=== PATIENT | male | born 1955 | race Caucasian/White ===

== ENCOUNTER 2020-08-22 07:32 | Emergency (ER) | payer MEDICARE, MEDICAID ==
--- NOTE | 2020-08-22 07:52 | EDM.PDOC ---
ED HPI GENERAL MEDICAL PROBLEM - General Chief Complaint: ENT Problem Stated Complaint: DENTAL COMPLAINT Time Seen by Provider: 08/22/20 07:51 - History of Present Illness INITIAL COMMENTS - FREE TEXT/NARRATIVE: 65-year-old [facility] with [facility]ums. On the second of this month the patient had some dental extractions. Now he is digging at them with his comb and toothbrush. He is open these up and it bleeds at times. He has not had any fevers or chills. No other complaints at this time the patient suffers from psychiatric illness and traumatic brain injury. - Related Data Home Meds: Home Meds Amoxicillin 500 mg PO TID #30 tab 08/22/20 [Rx] Benzocaine [Orajel Regular Strength] 10 gm .XX Q6H #1 tube 08/22/20 [Rx] ED ROS ENT - Review of Systems Review Of Systems: See Below Reason Not Obtained: Patient is not talkative Constitutional: Reports: No Symptoms ED EXAM, ENT - Physical Exam Exam: See Below Exam Limited By: No Limitations General Appearance: Alert, No Apparent Distress Eye Exam: Bilateral Eye: Normal Inspection Ears: Normal External Exam, Normal Canal, Hearing Grossly Normal, Normal TMs Nose: Normal Inspection, Normal Mucousa, No Blood Mouth/Throat: Normal Inspection, Normal Lips, Normal Oropharynx, Other (Most of his teeth are missing lower right frontal teeth he had a recent extraction this was apparently closed up this is partially open back up. No significant redness no active bleeding at this time.) Head: Atraumatic, Normocephalic Neck: Normal Inspection, Supple, Non-Tender, Full Range of Motion. No: Lymphadenopathy (L), Lymphadenopathy (R) Respiratory/Chest: No Respiratory Distress, Lungs Clear, Normal Breath Sounds Cardiovascular: Regular Rate, Rhythm, No Edema, No Murmur Course - Vital Signs Last Recorded V/S: Last Vital Signs Temp 35.9 C L 08/22/20 07:37 Pulse 70 08/22/20 07:37 Resp 16 08/22/20 07:37 BP 96/70 08/22/20 07:37 Pulse Ox 95 08/22/20 07:37 - Re-Assessments/Exams Free Text/Narrative Re-Assessment/Exam: 08/22/20 08:10 Will give a prescription for Orajel and start him on amoxicillin Departure - Departure Time of Disposition: 08:11 Disposition: DC/Tfer to SN[facility] Clinical Impression: Bleeding gums - Discharge Information Referrals: Braden Covington MD [Primary Care Provider] - Forms: ED Department Discharge Additional Instructions: Return to the emergency room with any questions problems or worsening symptoms. Follow-up with the dentist on Monday. He has been started on amoxicillin in case he is developing an infection secondary to the gum trauma. We can try Orajel see if this stops the irritation and hopefully this will deter him from doing more trauma to the gums. Sepsis Event Note (ED) - Evaluation Sepsis Screening Result: No Definite Risk - Focused Exam Vital Signs: Vital Signs Temp Pulse Resp BP Pulse Ox 08/22/20 07:37 35.9 C L 70 16 96/70 95
== END 2020-08-22 08:30 ==
LOC: JD.ED 07:32
DX: K06.8 Other specified disorders of gingiva and edentulous alveolar ridge (principal)
CPT/HCPCS: 99283

== ENCOUNTER 2020-10-21 08:25 | Emergency (ER) | payer MEDICARE, MEDICAID ==
[2020-10-21] MEDS ORDERED: Sodium Chloride 0.9% 10 ML Syringe FLUSH PRN (09:22)
--- NOTE | 2020-10-21 09:52 | EDM.PDOC ---
ED HPI GENERAL MEDICAL PROBLEM - General Chief Complaint: General Stated Complaint: LOW BLOOD PRESSURE/LETHARGIC Time Seen by Provider: 10/21/20 08:55 Source of Information: Reports: [facility] Records History Limitations: Reports: No Limitations, Other (ED vital signs reveal a temp of 97.1, pulse of 73, respiratory rate 16, blood pressure 113/79, pulse ox 95% on room air) - History of Present Illness INITIAL COMMENTS - FREE TEXT/NARRATIVE: 65-year-old male who resides at [facility] presents to the emergency department today via [facility] for complaints of low blood pressure and lethargy. Per the snf report, the patient has a significant history of excessive amounts of water intake and hyponatremia as a result. They state that yesterday his blood pressures were in the 70s systolic and he seemed more lethargic. He then ate a bag of potato chips and seemed to get better. However I am unsure why they sent him today to be evaluated as his blood pressures are in the low 100s systolically. The patient is unable to give me any history as he has a significant history of dementia, schizophrenia and Parkinson's disease. prison reports that at baseline the patient's speech is normally garbled and he is confused. - Related Data Allergies Allergy/AdvReac Type Severity Reaction Status Date / Time clozapine [From Clozaril] Allergy Other Verified 10/21/20 09:14 haloperidol [From Haldol] Allergy Other Verified 10/21/20 09:14 Penicillins Allergy Rash Verified 10/21/20 09:14 Home Meds: Home Meds Acetaminophen 650 mg PO QID 10/21/20 [History] Albuterol Sulfate [Albuterol Sulfate HFA] 2 inhalation PO BID 10/21/20 [History] Albuterol Sulfate [Albuterol Sulfate HFA] 2 inhalation PO Q4H PRN 10/21/20 [History] Benzocaine/Menthol/Zinc Chlor [Orajel 3X Mouth Sores Gel] 1 appful MUCMEM Q6H PRN 10/21/20 [History] Calcium Carbonate [Calcium] 500 mg PO BID 10/21/20 [History] Carbidopa/Levodopa [Carbidopa-Levodopa 25-100] 2 tab PO TID 10/21/20 [History] Cholecalciferol (Vitamin D3) [Vitamin D3] 3,000 units PO QPM 10/21/20 [History] Glycopyrrolate 2 mg PO BID 10/21/20 [History] Loratadine 10 mg PO DAILY PRN 10/21/20 [History] Magnesium Oxide [Magnesium] 400 mg PO DAILY 10/21/20 [History] Melatonin 3 mg PO BEDTIME 10/21/20 [History] OLANZapine [Olanzapine] 5 mg PO QPM 10/21/20 [History] OLANZapine [Olanzapine] 20 mg PO BID 10/21/20 [History] Omeprazole 20 mg PO ACBREAKFAST 10/21/20 [History] Paliperidone [Paliperidone ER] 3 mg PO DAILY 10/21/20 [History] Potassium Chloride 20 meq PO BID 10/21/20 [History] Pyridoxine HCl (Vitamin B6) [Pyridoxine HCl] 50 mg PO DAILY 10/21/20 [History] Sennosides/Docusate Sodium [Senna Plus 8.6-50 mg Tablet] 2 each PO BID 10/21/20 [History] Venlafaxine HCl [Venlafaxine HCl ER] 225 mg PO DAILY 10/21/20 [History] bisacodyL [Bisacodyl] 10 mg RECTAL DAILY PRN 10/21/20 [History] clonazePAM [Clonazepam] 1 mg PO BID 10/21/20 [History] fluvoxaMINE [Luvox] 150 mg PO BEDTIME 10/21/20 [History] levETIRAcetam [Levetiracetam] 500 mg PO BID 10/21/20 [History] levOCARNitine [l-Carnitine] 330 mg PO TID 10/21/20 [History] polyethylene glycoL 3350 [MiraLAX] 17 gm PO DAILY 10/21/20 [History] traZODone HCl [Trazodone HCl] 100 mg PO BEDTIME 10/21/20 [History] Past Medical History HEENT History: Reports: Allergic Rhinitis Respiratory History: Reports: Asthma, Pneumonia, Recurrent Gastrointestinal History: Reports: Chronic Constipation, GERD Musculoskeletal History: Reports: Osteoporosis Neurological History: Reports: Brain Injury, Other (See Below) Other Neuro History: dementia Psychiatric History: Reports: Bipolar, Dementia, Psychosis, Schizophrenia Endocrine/Metabolic History: Reports: Hypokalemia, Hypomagnesemia - Past Surgical History HEENT Surgical History: Reports: Other (See Below) Other HEENT Surgeries/Procedures: teeth removed. Social & Family History - Caffeine Use Caffeine Use: Reports: None ED ROS GENERAL - Review of Systems Review Of Systems: Unable To Obtain (due to dementia) Reason Not Obtained: pt has significant history of dementia, schitophrenia ED EXAM, GENERAL - Physical Exam Exam: See Below Exam Limited By: No Limitations General Appearance: WD/WN, No Apparent Distress, Lethargic Eye Exam: Bilateral Eye: PERRL Ears: Normal External Exam, Hearing Grossly Normal Nose: Normal Inspection Throat/Mouth: Normal Inspection, Normal Lips, Normal Voice, No Airway Compromise Head: Atraumatic Neck: Normal Inspection, Supple Respiratory/Chest: No Respiratory Distress, Lungs Clear, Normal Breath Sounds, No Accessory Muscle Use, Chest Non-Tender Cardiovascular: Normal Peripheral Pulses, Regular Rate, Rhythm, No Edema, No Murmur Peripheral Pulses: 2+: Radial (L), Radial (R) GI/Abdominal: Normal Bowel Sounds, Soft, Non-Tender, No Distention (Male) Exam: Deferred Rectal (Males) Exam: Deferred Back Exam: Normal Inspection Extremities: Normal Inspection, Non-Tender, No Pedal Edema Neurological: Disoriented (Patient does have a history of dementia and per the snf he is quite confused), Slow to Respond (However per the snf they state this is the patient's baseline) Psychiatric: Normal Affect, Normal Mood Skin Exam: Warm, Dry, Intact, Normal Color, No Rash Lymphatic: No Adenopathy #1 Interpretation EKG Date: 10/21/20 Time: 08:32 Rhythm: NSR Rate (Beats/Min): 69 [place]: Normal P-Wave: Present QRS: Normal ST-T: Normal QT: Normal EKG Interpretation Comments: Per Dr. Kennedy interpretation: sinus rhythm @ 69 Course - Vital Signs Text/Narrative:: Patient presents to the emergency department today and snf staff reports that 1 day ago the patient seemed more lethargic and hypotensive as his blood pressures were in the 70s systolically. They report that he then ate a bag of potato chips last evening and seemed to rebound and be back to his baseline. Again I am confused as to why they have sent the patient here today as they state he is back at his baseline. Of note the patient does have a history of schizophrenia, dementia, and Parkinson's. He is known to have an excessive amount of water intake which results in hyponatremia. Upon assessment the patient initially seems lethargic and unresponsive to verbal command however when I do check his pupils he arouses and then is communicative with me. I asked him how he is doing and he reports that he is doing well and has to go to the bathroom. He is unaware of why he is in the emergency department however. I have ordered labs, EKG, portable view of the chest, and a Covid swab. Last Recorded V/S: Last Vital Signs Temp 97.1 F 10/21/20 09:08 Pulse 73 10/21/20 09:08 Resp 16 10/21/20 09:08 BP 113/79 10/21/20 09:08 Pulse Ox 95 10/21/20 09:08 - Orders/Labs/Meds Orders: Active Orders 24 hr Category Date Time Status EKG 12 Lead [EKG Documentation Completion] [RC] STAT Care 10/21/20 09:31 Active Sodium Chloride 0.9% [Saline Flush] Med 10/21/20 09:22 Active 10 ml FLUSH ASDIRECTED PRN Saline Lock Insert [OM.PC] Stat Oth 10/21/20 09:22 Ordered Medication Orders Sodium Chloride (Sodium Chloride 0.9% 10 Ml Syringe) 10 ml FLUSH ASDIRECTED PRN PRN Reason: Keep Vein Open Last Admin: 10/21/20 09:25 Dose: 10 ml Documented by: MAURI Labs: Laboratory Tests 10/21/20 10/21/20 10/21/20 Range/Units 09:30 09:36 09:36 WBC 7.03 (4.23-9.07) K/mm3 RBC 4.38 L (4.63-6.08) M/mm3 Hgb 13.6 L (13.7-17.5) gm/dl Hct 41.3 (40.1-51.0) % MCV 94.3 H (79.0-92.2) fl MCH 31.1 (25.7-32.2) pg MCHC 32.9 (32.2-35.5) g/dl RDW Std Deviation 48.5 H (35.1-43.9) fL Plt Count 315 (163-337) K/mm3 MPV 9.3 L (9.4-12.3) fl Neut % (Auto) 64.2 (34.0-67.9) % Lymph % (Auto) 19.8 L (21.8-53.1) % [place] % (Auto) 7.7 (5.3-12.2) % Eos % (Auto) 7.4 H (0.8-7.0) Baso % (Auto) 0.9 (0.1-1.2) % Neut # (Auto) 4.52 (1.78-5.38) K/mm3 Lymph # (Auto) 1.39 (1.32-3.57) K/mm3 [place] # (Auto) 0.54 (0.30-0.82) K/mm3 Eos # (Auto) 0.52 (0.04-0.54) K/mm3 Baso # (Auto) 0.06 (0.01-0.08) K/mm3 Sodium 141 (136-145) mEq/L Potassium 4.1 (3.5-5.1) mEq/L Chloride 105 (98-107) mEq/L Carbon Dioxide 25 (21-32) mEq/L Anion Gap 15.1 H (5-15) BUN 20 H (7-18) mg/dL Creatinine 1.1 (0.7-1.3) mg/dL Est Cr Clr Drug Dosing 55.71 mL/min Estimated GFR (MDRD) > 60 (>60) mL/min BUN/Creatinine Ratio 18.2 H (14-18) Glucose 106 H (70-99) mg/dL Calcium 8.5 (8.5-10.1) mg/dL Magnesium 2.4 (1.8-2.4) mg/dL Total Bilirubin 0.2 (0.2-1.0) mg/dL AST 35 (15-37) U/L ALT 20 (16-63) U/L Alkaline Phosphatase 91 (46-116) U/L C-Reactive Protein 2.7 H* (<1.0) mg/dL Total Protein 7.6 (6.4-8.2) g/dl Albumin 3.1 L (3.4-5.0) g/dl Globulin 4.5 gm/dL Albumin/Globulin Ratio 0.7 L (1-2) Urine Color (Yellow) Urine Appearance (Clear) Urine pH (5.0-8.0) Ur Specific [place] (1.005-1.030) Urine Protein (Negative) Urine Glucose (UA) (Negative) Urine Ketones (Negative) Urine Occult Blood (Negative) Urine Nitrite (Negative) Urine Bilirubin (Negative) Urine Urobilinogen (0.2-1.0) Ur Leukocyte Esterase (Negative) SARS-CoV-2 RNA (REECE) Negative (NEGATIVE) 10/21/20 Range/Units 09:50 WBC (4.23-9.07) K/mm3 RBC (4.63-6.08) M/mm3 Hgb (13.7-17.5) gm/dl Hct (40.1-51.0) % MCV (79.0-92.2) fl MCH (25.7-32.2) pg MCHC (32.2-35.5) g/dl RDW Std Deviation (35.1-43.9) fL Plt Count (163-337) K/mm3 MPV (9.4-12.3) fl Neut % (Auto) (34.0-67.9) % Lymph % (Auto) (21.8-53.1) % [place] % (Auto) (5.3-12.2) % Eos % (Auto) (0.8-7.0) Baso % (Auto) (0.1-1.2) % Neut # (Auto) (1.78-5.38) K/mm3 Lymph # (Auto) (1.32-3.57) K/mm3 [place] # (Auto) (0.30-0.82) K/mm3 Eos # (Auto) (0.04-0.54) K/mm3 Baso # (Auto) (0.01-0.08) K/mm3 Sodium (136-145) mEq/L Potassium (3.5-5.1) mEq/L Chloride (98-107) mEq/L Carbon Dioxide (21-32) mEq/L Anion Gap (5-15) BUN (7-18) mg/dL Creatinine (0.7-1.3) mg/dL Est Cr Clr Drug Dosing mL/min Estimated GFR (MDRD) (>60) mL/min BUN/Creatinine Ratio (14-18) Glucose (70-99) mg/dL Calcium (8.5-10.1) mg/dL Magnesium (1.8-2.4) mg/dL Total Bilirubin (0.2-1.0) mg/dL AST (15-37) U/L ALT (16-63) U/L Alkaline Phosphatase (46-116) U/L C-Reactive Protein (<1.0) mg/dL Total Protein (6.4-8.2) g/dl Albumin (3.4-5.0) g/dl Globulin gm/dL Albumin/Globulin Ratio (1-2) Urine Color Yellow (Yellow) Urine Appearance Clear (Clear) Urine pH 7.0 (5.0-8.0) Ur Specific [place] 1.020 (1.005-1.030) Urine Protein Negative (Negative) Urine Glucose (UA) Negative (Negative) Urine Ketones Negative (Negative) Urine Occult Blood Negative (Negative) Urine Nitrite Negative (Negative) Urine Bilirubin Negative (Negative) Urine Urobilinogen 0.2 (0.2-1.0) Ur Leukocyte Esterase Negative (Negative) SARS-CoV-2 RNA (REECE) (NEGATIVE) Meds: Medications Generic Name Dose Route Start Last Admin Trade Name Freq PRN Reason Stop Dose Admin Sodium Chloride 10 ml 10/21/20 09:22 10/21/20 09:25 Sodium Chloride 0.9% 10 Ml Syringe FLUSH 10 ml ASDIRECTED PRN Administration Keep Vein Open - Re-Assessments/Exams Free Text/Narrative Re-Assessment/Exam: 10/21/20 10:23 Radiologist impression portable view of the chest: Orthopedic hardware is noted within the left clavicle affixing an old healed fracture. Heart size and mediastinum are within normal limits. Lungs are clear with no acute parenchymal change. 10/21/20 10:27 Hematology reveals a WBC of 7.03, hemoglobin 13.6, hematocrit 41.3, chemistry reveals a sodium of 141, potassium 4.1, chloride 105, carbon dioxide 25, anion gap 15.1, BUN 20, creatinine 1.1, glucose 106, magnesium 2.4, AST 35, ALT 20, C- reactive protein 2.7 10/21/20 10:40 Urinalysis is unremarkable. 10/21/20 10:42 At this time I cannot find anything acutely wrong with this patient, he will be discharged back to [facility] home. Recommend he follow-up with his primary care provider in a week to 10 days. 10/21/20 10:44 The patient's Covid swab is negative. Departure - Departure Time of Disposition: 10:47 Disposition: Home, Self-Care 01 Condition: Good Clinical Impression: Lethargy - Discharge Information Instructions: Fatigue, Weakness, [id number] Referrals: Braden Covington MD [Primary Care Provider] - Forms: ED Department Discharge Additional Instructions: Omar was seen in the emergency department today with complaints of fatigue, weakness and hypotension that occurred yesterday. Full clinical work-up was completed which included an EKG, chest x-ray and lab studies. All of these were essentially unremarkable. His sodium level is 141 which is well within normal limits. His blood pressures well in the emergency department were within normal limits. His urinalysis was unremarkable. Recommended that he follow-up with his primary care provider in a week to 10 days. Should his condition worsen or change, do not hesitate returning to the emergency department. Sepsis Event Note (ED) - Evaluation Sepsis Screening Result: No Definite Risk - Focused Exam Vital Signs: Vital Signs Temp Pulse Resp BP Pulse Ox 10/21/20 09:08 97.1 F 73 16 113/79 95 - My Orders Last 24 Hours: My Active Orders 10/21/20 09:22 Sodium Chloride 0.9% [Saline Flush] 10 ml FLUSH ASDIRECTED PRN Saline Lock Insert [OM.PC] Stat 10/21/20 09:31 EKG 12 Lead [EKG Documentation Completion] [RC] STAT - Assessment/Plan Last 24 Hours: My Active Orders 10/21/20 09:22 Sodium Chloride 0.9% [Saline Flush] 10 ml FLUSH ASDIRECTED PRN Saline Lock Insert [OM.PC] Stat 10/21/20 09:31 EKG 12 Lead [EKG Documentation Completion] [RC] STAT
--- NOTE | 2020-10-21 10:22 | CR ---
Chest: Portable supine view of the chest was obtained. Comparison: No prior chest imaging is available. Orthopedic hardware is noted within the left clavicle affixing an old healed fracture. Heart size and mediastinum are within normal limits. Lungs are clear with no acute parenchymal change. Impression: 1. Findings as noted above. 2. Nothing acute is appreciated on portable chest x-ray. Diagnostic code #2
== END 2020-10-21 11:15 | disposition home or self-care (01) ==
LOC: JD.ED 08:25
DX: R53.83 Other fatigue (principal); J45.909 Unspecified asthma, uncomplicated; K21.9 Gastro-esophageal reflux disease without esophagitis; F03.90 Unspecified dementia, unspecified severity, without behavioral disturbance, psychotic disturbance, mood disturbance, and anxiety; Z88.8 Allergy status to other drugs, medicaments and biological substances; Z88.0 Allergy status to penicillin; Z20.822 Contact with and (suspected) exposure to COVID-19
CPT/HCPCS: 36415; 71045; 80053; 81003; 83735; 85025; 86140; 93005; 99285; U0002; 99283

== ENCOUNTER 2021-05-27 14:31 | Emergency (ER) | payer MEDICARE, MEDICAID ==
--- NOTE | 2021-05-27 14:59 | EDM.PDOC ---
ED HPI GENERAL MEDICAL PROBLEM - General Chief Complaint: Gastrointestinal Problem Stated Complaint: [facility] Time Seen by Provider: 05/27/21 14:37 Source of Information: Reports: Patient, EMS History Limitations: Reports: No Limitations - History of Present Illness INITIAL COMMENTS - FREE TEXT/NARRATIVE: 65-year-old male presents the emergency department today from [facility]. Per report from EMS, care home sent the patient to be evaluated in the ER for questionable small bowel obstruction. Patient's last bowel movement was on 05/26/2021. However today abdomen was distended. He did receive a duplex suppository. The time EMS arrived to transport the patient he had had a very large bowel movement. States they did alert the patient's primary care provider who requested the patient still be sent to ER for further evaluation. Patient does take MiraLAX daily as well as senna twice daily and has Dulcolax suppositories noted daily as needed. He has not had any recent fever, chills, nausea, vomiting or diarrhea. He has not had any respiratory symptoms, including cough sore throat or shortness of breath. - Related Data Allergies Allergy/AdvReac Type Severity Reaction Status Date / Time clozapine [From Clozaril] Allergy Other Verified 05/27/21 14:45 haloperidol [From Haldol] Allergy Other Verified 05/27/21 14:45 Penicillins Allergy Rash Verified 05/27/21 14:45 Home Meds: Home Meds Acetaminophen 650 mg PO QID 10/21/20 [History] Albuterol Sulfate [Albuterol Sulfate HFA] 2 inhalation PO BID 10/21/20 [History] Albuterol Sulfate [Albuterol Sulfate HFA] 2 inhalation PO Q4H PRN 10/21/20 [History] Benzocaine/Menthol/Zinc Chlor [Orajel 3X Mouth Sores Gel] 1 appful MUCMEM Q6H PRN 10/21/20 [History] Calcium Carbonate [Calcium] 500 mg PO BID 10/21/20 [History] Carbidopa/Levodopa [Carbidopa-Levodopa 25-100] 2 tab PO TID 10/21/20 [History] Cholecalciferol (Vitamin D3) [Vitamin D3] 3,000 units PO QPM 10/21/20 [History] Glycopyrrolate 2 mg PO BID 10/21/20 [History] Loratadine 10 mg PO DAILY PRN 10/21/20 [History] Magnesium Oxide [Magnesium] 400 mg PO DAILY 10/21/20 [History] Melatonin 3 mg PO BEDTIME 10/21/20 [History] OLANZapine [Olanzapine] 5 mg PO QPM 10/21/20 [History] OLANZapine [Olanzapine] 20 mg PO BID 10/21/20 [History] Omeprazole 20 mg PO ACBREAKFAST 10/21/20 [History] Paliperidone [Paliperidone ER] 3 mg PO DAILY 10/21/20 [History] Potassium Chloride 20 meq PO BID 10/21/20 [History] Pyridoxine HCl (Vitamin B6) [Pyridoxine HCl] 50 mg PO DAILY 10/21/20 [History] Sennosides/Docusate Sodium [Senna Plus 8.6-50 mg Tablet] 2 each PO BID 10/21/20 [History] Venlafaxine HCl [Venlafaxine HCl ER] 225 mg PO DAILY 10/21/20 [History] bisacodyL [Bisacodyl] 10 mg RECTAL DAILY PRN 10/21/20 [History] clonazePAM [Clonazepam] 1 mg PO BID 10/21/20 [History] fluvoxaMINE [Luvox] 150 mg PO BEDTIME 10/21/20 [History] levETIRAcetam [Levetiracetam] 500 mg PO BID 10/21/20 [History] levOCARNitine [l-Carnitine] 330 mg PO TID 10/21/20 [History] polyethylene glycoL 3350 [MiraLAX] 17 gm PO DAILY 10/21/20 [History] traZODone HCl [Trazodone HCl] 100 mg PO BEDTIME 10/21/20 [History] Past Medical History HEENT History: Reports: Allergic Rhinitis Respiratory History: Reports: Asthma, Pneumonia, Recurrent Gastrointestinal History: Reports: Chronic Constipation, GERD Musculoskeletal History: Reports: Osteoporosis Neurological History: Reports: Brain Injury, Other (See Below) Other Neuro History: dementia Psychiatric History: Reports: Anxiety, Bipolar, Dementia, Psychosis, Schizophrenia Endocrine/Metabolic History: Reports: Hypokalemia, Hypomagnesemia - Past Surgical History HEENT Surgical History: Reports: Other (See Below) Other HEENT Surgeries/Procedures: teeth removed. Social & Family History - Tobacco Use Tobacco Use Status *Q: Unknown Ever Used Tobacco - Caffeine Use Caffeine Use: Reports: None - Recreational Drug Use Recreational Drug Use: No ED ROS GENERAL - Review of Systems Review Of Systems: Comprehensive ROS is negative, except as noted in HPI. ED EXAM, GI/ABD - Physical Exam Exam: See Below Exam Limited By: No Limitations General Appearance: Alert, WD/WN, No Apparent Distress Ears: Normal External Exam, Hearing Grossly Normal Nose: Normal Inspection Throat/Mouth: Normal Inspection, Normal Lips, Normal Voice, No Airway Compromise Head: Atraumatic, Normocephalic Neck: Normal Inspection, Supple Respiratory/Chest: No Respiratory Distress, Lungs Clear, Normal Breath Sounds, No Accessory Muscle Use, Chest Non-Tender Cardiovascular: Normal Peripheral Pulses, Regular Rate, Rhythm GI/Abdominal Exam: Normal Bowel Sounds, Soft, Non-Tender, No Distention (Male) Exam: Deferred Rectal (Males) Exam: Deferred Back Exam: Normal Inspection Extremities: Normal Inspection Neurological: Alert, Oriented Psychiatric: Normal Affect, Normal Mood Skin Exam: Warm, Dry, Intact, Normal Color, No Rash Lymphatic: No Adenopathy Course - Vital Signs Text/Narrative:: Physical exam reveals an alert male. Abdomen is not distended. Bowel tones are positive in all 4 quadrants. He denies any abdominal tenderness with palpation. He denies any feelings of fullness, nausea or vomiting. Did discuss the case with Dr. Lowry who recommends he be returned to the care home. Last Recorded V/S: Last Vital Signs Temp 98.0 F 05/27/21 14:42 Pulse 73 05/27/21 14:42 Resp 16 05/27/21 14:42 BP 101/74 05/27/21 14:42 Pulse Ox 97 05/27/21 14:42 - Orders/Labs/Meds Orders: Active Orders 24 hr Category Date Time Status Abdomen 2V AP Flat Upright [CR] Stat Exams 05/27/21 14:47 Stop Req Departure - Departure Time of Disposition: 14:54 Disposition: DC/Tfer to [facility] Condition: Good Clinical Impression: Constipation Qualifiers: Constipation type: unspecified constipation type Qualified Code(s): K59.00 - Constipation, unspecified - Discharge Information Instructions: Constipation, Adult, [id number] Referrals: PCP,None [Primary Care Provider] - Additional Instructions: Omar was seen in the emergency department due to recommendations by his provider for questionable bowel obstruction. Prior to arrival in the emergency department EMS reported that the patient had a very large bowel movement and abdomen was no longer distended. At the time of my exam, patient states he feels much better since having bowel movement. He denies any nausea or vomiting. He denies any abdominal tenderness. He is not distended. He can return to the care home. Be sure he is taking his MiraLAX daily as prescribed. Be sure he is taking his senna twice daily as prescribed. May use Dulcolax suppository daily as prescribed. Be sure he is drinking plenty of fluids and eating a high-fiber diet. Sepsis Event Note (ED) - Evaluation Sepsis Screening Result: No Definite Risk - Focused Exam Vital Signs: Vital Signs Temp Pulse Resp BP Pulse Ox 05/27/21 14:42 98.0 F 73 16 101/74 97 - My Orders Last 24 Hours: My Active Orders 05/27/21 14:47 Abdomen 2V AP Flat Upright [CR] Stat - Assessment/Plan Last 24 Hours: My Active Orders 05/27/21 14:47 Abdomen 2V AP Flat Upright [CR] Stat
--- NOTE | 2021-05-27 15:51 | CR ---
Abdomen: Supine and upright views the abdomen were obtained. Comparison: No prior abdominal imaging is available. Diffuse increased stool is seen throughout the colon. Lack of stool is seen within the rectum. No free air is seen. Scoliosis is noted within the spine. Intramedullary eloise is seen within the right femur. Phleboliths are seen within the left pelvis. Impression: 1. Diffuse increased stool throughout the colon. Lack of stool within the rectum. This is most likely incidental although difficult to exclude an area of sigmoid stenosis. 2. Other findings as noted above. Diagnostic code #3
== END 2021-05-27 16:40 ==
LOC: JD.ED 14:31
DX: K59.00 Constipation, unspecified (principal); Z88.0 Allergy status to penicillin; Z88.5 Allergy status to narcotic agent
CPT/HCPCS: 74019; 74019-26; 99284

== ENCOUNTER 2021-09-24 14:39 | Emergency (ER) | payer MEDICARE, MEDICAID ==
[2021-09-24] MEDS ORDERED: Nitrofurantoin Monohydrate/Macrocrystalline 100 MG Cap PO ONE (17:35)
== END 2021-09-24 18:26 ==
LOC: JD.ED 14:39
DX: N39.0 Urinary tract infection, site not specified (principal); K21.9 Gastro-esophageal reflux disease without esophagitis; Z88.0 Allergy status to penicillin; Z88.5 Allergy status to narcotic agent; Z88.8 Allergy status to other drugs, medicaments and biological substances; Z79.899 Other long term (current) drug therapy
CPT/HCPCS: 36415; 70450; 71045; 80053; 81001; 82947; 83735; 84484; 85025; 85610; 85730; 87086; 93005; 99285; A9270; 93010; 99284

== ENCOUNTER 2022-01-22 18:46 | Emergency (ER) | payer MEDICARE, MEDICAID ==
[2022-01-22] MEDS ORDERED: Sulfamethoxazole/Trimethoprim 800-160 MG Tab PO ONE (21:36)
== END 2022-01-22 21:55 | disposition home or self-care (01) ==
LOC: JD.ED 18:46
DX: L03.113 Cellulitis of right upper limb (principal); K21.9 Gastro-esophageal reflux disease without esophagitis; Z79.899 Other long term (current) drug therapy; Z88.0 Allergy status to penicillin; Z88.5 Allergy status to narcotic agent; Z88.8 Allergy status to other drugs, medicaments and biological substances
CPT/HCPCS: 71111; 73080; 99283; A9270; 99284

== ENCOUNTER 2022-01-30 17:42 | Emergency (ER) | payer MEDICARE, MEDICAID ==
[2022-01-30] MEDS ORDERED: OLANZapine 10 MG Vial IM ONE (17:56)
[2022-01-30] MEDS ORDERED: fluvoxaMINE 50 MG Tab PO SCH (21:00)
[2022-01-30] MEDS ORDERED: Carbidopa/Levodopa 25-100 MG Tab PO ONE (21:28)
[2022-01-30] MEDS ORDERED: Acetaminophen 325 MG Tab PO ONE (21:28)
[2022-01-30] MEDS ORDERED: Potassium Chloride 10 MEQ Tab.ER PO ONE (21:28)
[2022-01-30] MEDS ORDERED: LORazepam 2 MG/ML SDV IM PRN (21:30)
[2022-01-30] MEDS ORDERED: ClonazePAM 0.5 MG Tab PO ONE (21:34)
[2022-01-30] MEDS ORDERED: Albuterol 6.7 GM Inhaler INH ONE (21:34)
[2022-01-30] MEDS ORDERED: lamoTRIgine 100 MG Tab PO ONE (21:34)
[2022-01-31] MEDS ORDERED: Lactated Ringers 500 ML IV ONE (09:43)
[2022-01-31] MEDS ORDERED: LORazepam 2 MG/ML SDV IVPUSH STA (10:37)
[2022-01-31] MEDS ORDERED: LORazepam 2 MG/ML SDV IVPUSH ONE (12:19)
== END 2022-01-31 13:20 ==
LOC: JD.ED 17:42
DX: F20.9 Schizophrenia, unspecified (principal); R45.6 Violent behavior; J45.909 Unspecified asthma, uncomplicated; K21.9 Gastro-esophageal reflux disease without esophagitis; Z20.822 Contact with and (suspected) exposure to COVID-19; Z88.8 Allergy status to other drugs, medicaments and biological substances; Z88.0 Allergy status to penicillin; Z79.899 Other long term (current) drug therapy; Z86.16 Personal history of COVID-19
CPT/HCPCS: 36415; 80053; 80143; 80179; 80306; 80307; 81001; 84443; 85025; 93005; 96361; 96374; 96376; 99285; A9270; J2060; J7120; U0002; 93010; 99284